=== PATIENT | female | born 1965 | race Caucasian/White ===

== ENCOUNTER 2024-03-30 10:22 | Emergency (ER) | payer OTHER ==
[~2024-03-30] VITALS: Ht 165.1 cm; Wt 99.3 kg
[~2024-03-30 10:22] MED LIST: AMOX TR-K CLV1 EAC2 PO; CLEOCIN HCL300 MG PO; DICYCLOMINE HCL20 MG PO; DIFLUCAN100 MG PO; DOXYCYCLINE HY100 MG PO; KEFLEX125 MG/5 M PO
[2024-03-30 10:25] VITALS: PULSE 86; RESP 18; TEMP 98.7; O2SAT 99
== END 2024-03-30 10:51 | disposition home or self-care (01) ==
LOC: ER 10:28
DX: S61.012A Laceration without foreign body of left thumb without damage to nail, initial encounter (principal); W26.0XXA Contact with knife, initial encounter; Y92.89 Other specified places as the place of occurrence of the external cause; I10 Essential (primary) hypertension
CPT/HCPCS: 99283

== ENCOUNTER 2024-10-01 11:20 | Emergency (ER) | payer OTHER ==
[~2024-10-01] VITALS: Ht 165.1 cm; Wt 99.3 kg
[2024-10-01 11:30] VITALS: PULSE 72; RESP 16; TEMP 98.4; O2SAT 99
[2024-10-01] MEDS: LIDOCAINE HCL 1% LOCAL INJ 20 ML VIAL INJ ONE (11:58)
[2024-10-01] MEDS ORDERED: CEPHALEXIN500 MG PO (12:07)
[2024-10-01] MEDS: NEOMYCIN/POLYMYX/BACITR OINT 0.9 GM PKT TOP ONE (12:29)
== END 2024-10-01 12:36 | disposition home or self-care (01) ==
LOC: ER 11:39
DX: S61.307A Unspecified open wound of left little finger with damage to nail, initial encounter (principal); W45.0XXA Nail entering through skin, initial encounter; Y92.89 Other specified places as the place of occurrence of the external cause; I10 Essential (primary) hypertension
CPT/HCPCS: 11730; 99282; J2003

== ENCOUNTER 2024-10-02 14:46 | Emergency (ER) | payer OTHER ==
[~2024-10-02] VITALS: Ht 165.1 cm; Wt 105.2 kg
[~2024-10-02 14:46] MED LIST changes: +CEPHALEXIN500 MG PO
[2024-10-02 17:10] VITALS: PULSE 59; RESP 16; TEMP 98.2; O2SAT 100
== END 2024-10-02 17:13 | disposition home or self-care (01) ==
LOC: ER 16:10
DX: T24.201A Burn of second degree of unspecified site of right lower limb, except ankle and foot, initial encounter (principal); T31.0 Burns involving less than 10% of body surface; X12.XXXA Contact with other hot fluids, initial encounter; Y93.G3 Activity, cooking and baking; Y92.89 Other specified places as the place of occurrence of the external cause; I10 Essential (primary) hypertension; E78.5 Hyperlipidemia, unspecified
CPT/HCPCS: 99283